=== PATIENT | male | born 1935 | race Caucasian/White ===

== ENCOUNTER → 2018-01-29 09:12 | Outpatient (CLI) | payer MEDICARE, SELFPAY ==
[2018-01-29 12:06] LABS: Adenovirus F 40/41 Not Detected (Not Detect); Astrovirus Not Detected (Not Detect); Campylobacter Not Detected (Not Detect); Clostridium difficile toxin AB Not Detected (Not Detect); Cryptosporidium Not Detected (Not Detect); Cyclospora cayetanensis Not Detected (Not Detect); Entamoeba histolytica Not Detected (Not Detect); Enteroaggregative E.coli Not Detected (Not Detect); Enteropathogenic E.coli Not Detected (Not Detect); Enterotoxigenic E.coli It/st Not Detected (Not Detect); Giardia lamblia Not Detected (Not Detect); Norovirus GI/GII Not Detected (Not Detect); Plesiomonsa shigelloides Not Detected (Not Detect); Rotavirus A Not Detected (Not Detect); Salmonella Not Detected (Not Detect); Shiga-like toxin-prod E.coli Not Detected (Not Detect); Shigella/Enteroinvasive E.coli Not Detected (Not Detect); Vibrio Not Detected (Not Detect); Vibrio cholerae Not Detected (Not Detect); Yersinia enterocolitica Not Detected (Not Detect)
== END ==
PROVIDERS: PCP Internal Medicine; Visit Provider Internal Medicine
DX: R19.7 Diarrhea, unspecified (principal)
CPT/HCPCS: 87507

== ENCOUNTER → 2019-11-27 18:59 | Outpatient (ROUT) | payer MEDICARE, SELFPAY ==
[2019-11-27 19:16] LABS: Alanine Aminotransferase 13 IU/L (<50); Albumin 4.4 g/dL (3.5-5.0); Albumin Globulin Ratio 1.5 (1.0-2.8); Alkaline Phosphatase 92 U/L (38-126); Aspartate Aminotransferase 35 IU/L (17-59); Bilirubin Total 0.6 mg/dL (0.2-1.3); Blood Urea Nitrogen 15 mg/dL (9-20); Calcium 10.4 mg/dL (8.4-10.2); Carbon Dioxide 29 mmol/L (22-32); Chloride 105 mmol/L (98-107); Cholesterol 120 mg/dL (140-199); Estimated Glomerular Filt Rate > 60.0 mL/min (>60); Globulin 2.9 g/dL (1.7-4.1); Glucose 86 mg/dL (80-110); HDL Cholesterol 47 mg/dL (40-60); HEMOLYSIS < 15 (0-50); LDL Cholesterol Calculated 44 mg/dL (<100); Sodium 140 mmol/L (137-145); Total Protein 7.3 g/dL (6.3-8.2); Triglycerides 144 mg/dL (35-150)
[2019-11-27 19:25] LABS: Hematocrit 36.6 % (41-53); Hemoglobin 12.9 g/dL (13.5-17.5); Mean Corpuscular HGB Conc 35.3 % (30-36); Mean Corpuscular Volume 116.2 fL (80-100); Platelet Count 155 X10^3/uL (150-400); Red Blood Cell Count 3.15 X10^6/uL (4.5-5.9); Red Cell Distribution Width 14.7 % (11.6-14.8); White Blood Cell Count 8.4 X10^3/uL (4.5-11.0)
[2019-11-27 19:45] LABS: TSH w/ Reflex to FT4 2.89 uIU/mL (0.47-4.68)
[2019-11-27 19:46] LABS: Prostate Specific Antigen 0.893 ng/mL (0.10-4.00)
[2019-11-27 20:04] LABS: Vitamin B12 394 pg/mL (239-931)
== END ==
PROVIDERS: Family Provider Internal Medicine; PCP Internal Medicine; Visit Provider Internal Medicine
DX: E53.8 Deficiency of other specified B group vitamins (principal); E78.2 Mixed hyperlipidemia; D37.8 Neoplasm of uncertain behavior of other specified digestive organs; N40.1 Benign prostatic hyperplasia with lower urinary tract symptoms
CPT/HCPCS: 80053; 80061; 82607; 84153; 84443; 85027

== ENCOUNTER → 2020-01-01 11:59 | Outpatient (CLI) | payer MEDICARE, SELFPAY ==
--- NOTE | 2020-01-01 | DI.CT.S_ITS ---
PROCEDURE: CT ABDOMEN PELVIS W CON INDICATIONS: Cyst of pancreas TECHNIQUE: After the administration of oral and intravenous contrast, 5 mm thick sections acquired from the diaphragms to the symphysis. 5 mm thick coronal and sagittal reformats were performed. For radiation dose reduction, the following was used: automated exposure control, adjustment of mA and/or kV according to patient size. COMPARISON: [facility], CT, IVP (ABD & PEL WWO CONTRAST), 07/11/2017, 11:15. FINDINGS: Image quality: Excellent. ABDOMEN: Lung bases: Lung bases are clear. Heart size is normal. Solid organs: Liver is normal in size and enhancement. Gallbladder has been previously resected. . Biliary system is non-dilated. Pancreas enhances normally, but again is seen to demonstrate a pancreatic head cystic structure and also dilatation of the proximal pancreatic duct with prominence of pancreatic side duct structures at the pancreatic tail. The cystic structure of the pancreatic head measures up to 1.7 cm, 1.6 cm in July of 2017. No significant change. The morphology in degree of pancreatic ductal dilatation both at the main duct and the side branches at the pancreatic tail also is stable over time with maximal transverse dimension at the main duct of 11 mm. Spleen is normal in size and enhancement. No adrenal nodules. Kidneys are normal in size and enhancement, without hydronephrosis. Peritoneum and bowel: Stomach, small bowel, and colon loops are normal in caliber and wall thickness. No free fluid or air. Nodes and vessels: No retroperitoneal or mesenteric adenopathy. Aorta and inferior vena cava are normal in caliber. Miscellaneous: No ventral hernias. PELVIS: Genitourinary: Bladder wall thickness is normal and again noted is a right posterolateral bladder diverticulum containing internal calculi, the largest of which measures up to 2 cm. Prostate enlargement again noted, stable, stippled calcification are present at the median lobe of the prostate as was previously the case Miscellaneous: No inguinal hernias or adenopathy. Bones: No suspicious bony lesions. No vertebral body compression fractures. IMPRESSION: The patient has a history of previous identification of several pancreatic cysts and asymmetric enlargement of the proximal pancreatic duct at the pancreatic tail measuring up to 10 mm. The current ductal caliber is 11 mm, no significant change. The pancreatic head cyst appears simple and without significant enlargement over time. No adenopathy has developed. If clinically warranted follow-up similar CT in 2 years could be obtained. 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 Prior cholecystectomy. Mild interval enlargement of calculi within a bladder diverticulum at the right posterolateral bladder margin. Prosthetic enlargement, stippled prosthetic calcifications at the upper midline of the enlarged median lobe. Dictated by: Jr Scott M.D. on 01/01/2020 at 14:08 Approved by: Jr Scott M.D. on 01/01/2020 at 14:16
[2020-01-01 12:38] LABS: BUN Creatinine Ratio 17.3 (6-22); Blood Urea Nitrogen 13 mg/dL (9-20); Calcium 10.5 mg/dL (8.4-10.2); Carbon Dioxide 28 mmol/L (22-32); Chloride 105 mmol/L (98-107); Estimated Glomerular Filt Rate > 60.0 mL/min (>60); Glucose 95 mg/dL (80-110); HEMOLYSIS < 15 (0-50); Potassium 4.1 mmol/L (3.4-5.1); Sodium 138 mmol/L (137-145)
== END ==
PROVIDERS: Family Provider Internal Medicine; PCP Internal Medicine; Referring Provider Surgery Surgical Oncology; Visit Provider Surgery Surgical Oncology
DX: K86.2 Cyst of pancreas (principal); K86.89 Other specified diseases of pancreas; N40.0 Benign prostatic hyperplasia without lower urinary tract symptoms; N32.3 Diverticulum of bladder; Z90.49 Acquired absence of other specified parts of digestive tract
CPT/HCPCS: 36415; 74177; 80048; Q9967

== ENCOUNTER → 2020-07-03 18:30 | Outpatient (ROUT) | payer MEDICARE, SELFPAY ==
[2020-07-03 19:10] LABS: Add Manual Diff / Slide Review NO; Basophils Absolute Auto 100 /uL (0-100); Basophils Percent Auto 0.9 % (0-2); Eosinophils Absolute Auto 100 /uL (0-450); Eosinophils Percent Auto 0.6 % (2-4); Hematocrit 40.3 % (41-53); Hemoglobin 13.6 g/dL (13.5-17.5); Lymphocytes Absolute Auto 1400 /uL (1100-4500); Mean Corpuscular HGB Conc 33.7 % (30-36); Mean Corpuscular Hemoglobin 38.7 PG (26-34); Mean Corpuscular Volume 114.9 fL (80-100); Monocytes Absolute Auto 1200 /uL (0-900); Monocytes Percent Auto 12.3 % (3-14); Neutrophils Absolute Auto 7000 /uL (1500-7000); Neutrophils Percent Auto 72.2 % (50-75); Platelet Count 166 X10^3/uL (150-400); Red Cell Distribution Width 14.6 % (11.6-14.8); White Blood Cell Count 9.7 X10^3/uL (4.5-11.0)
[2020-07-03 19:13] LABS: Alanine Aminotransferase 16 IU/L (<50); Albumin 4.4 g/dL (3.5-5.0); Albumin Globulin Ratio 1.4 (1.0-2.8); Alkaline Phosphatase 94 U/L (38-126); Aspartate Aminotransferase 33 IU/L (17-59); BUN Creatinine Ratio 22.9 (6-22); Bilirubin Total 0.6 mg/dL (0.2-1.3); Bilirubin Unconjugated 0.5 mg/dL (0.0-1.1); Blood Urea Nitrogen 19 mg/dL (9-20); Calcium 10.8 mg/dL (8.4-10.2); Carbon Dioxide 28 mmol/L (22-32); Chloride 102 mmol/L (98-107); Estimated Glomerular Filt Rate > 60.0 mL/min (>60); Globulin 3.1 g/dL (1.7-4.1); Glucose 126 mg/dL (80-110); HEMOLYSIS < 15 (0-50); Sodium 138 mmol/L (137-145); Total Protein 7.5 g/dL (6.3-8.2)
[2020-07-03 19:47] LABS: Anisocytosis 1+; Macrocytosis 2+
[2020-07-03 20:02] LABS: Vitamin B12 926 pg/mL (239-931)
== END ==
PROVIDERS: Family Provider Internal Medicine; PCP Internal Medicine; Visit Provider Internal Medicine
DX: I47.1 Supraventricular tachycardia (principal); D51.9 Vitamin B12 deficiency anemia, unspecified; D37.8 Neoplasm of uncertain behavior of other specified digestive organs
CPT/HCPCS: 80048; 80076; 82607; 85025

== ENCOUNTER → 2020-07-13 13:22 | Outpatient (CLI) | payer OTHER, SELFPAY ==
[2020-07-13 15:46] LABS: Calcium 10.7 mg/dL (8.4-10.2)
[2020-07-14 09:06] LABS: Parathyroid Hormone Int 73 pg/mL (15-65)
[2020-07-14 09:09] LABS: Ionized Calcium 5.7 mg/dL (4.5-5.6)
== END ==
PROVIDERS: Family Provider Internal Medicine; PCP Internal Medicine; Referring Provider Internal Medicine; Visit Provider Internal Medicine
DX: Z13.9 Encounter for screening, unspecified (principal)
CPT/HCPCS: 82310; 82330; 83970

== ENCOUNTER → 2020-12-02 12:34 | Outpatient (CLI) | payer OTHER, SELFPAY ==
--- NOTE | 2020-12-02 | DI.RAD.S_ITS ---
PROCEDURE: XR LUMBAR SPINE 2-3V INDICATIONS: Other intervertebral disc degeneration, lumbar region TECHNIQUE: 3 views of the lumbar spine were acquired. COMPARISON: [facility], CT, CT ABDOMEN PELVIS W CON, 01/01/2020, 13:05. [facility], CR, L-SPINE 2-3 VIEWS, 06/16/2015, 12:13. FINDINGS: Bones: 5 [id number] vertebrae are present. There is normal bony alignment. No vertebral body compression fractures. No suspicious bony lesions. Soft tissues: Overlying bowel gas pattern is normal. No suspicious soft tissue calcifications. IMPRESSION: The degenerative changes along the lumbosacral spine are mild in severity overall and most prominent at L4-5 and L5-S1 where mild to moderate degeneration can be seen at the disc spaces. 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 No subluxation is associated. Bladder calculi are present within the bladder better seen by CT scanning 01/01/20. These remain present and appeared of slightly enlarged. Urology consultation presumably has been obtained. Dictated by: Jr Scott M.D. on 12/02/2020 at 14:09 Approved by: Jr Scott M.D. on 12/02/2020 at 14:12
== END ==
PROVIDERS: Family Provider Internal Medicine; PCP Internal Medicine; Referring Provider Internal Medicine; Visit Provider Internal Medicine
DX: M51.36 Other intervertebral disc degeneration, lumbar region (principal); M47.816 Spondylosis without myelopathy or radiculopathy, lumbar region; M47.817 Spondylosis without myelopathy or radiculopathy, lumbosacral region; N21.0 Calculus in bladder
CPT/HCPCS: 72100

== ENCOUNTER → 2021-11-17 09:31 | Outpatient (CLI) | payer OTHER, SELFPAY ==
--- NOTE | 2021-11-17 | DI.ECHO.S_ITS ---
[facility] +---------+ : : [address] : : : : [id number] : : : : Phone: [phone]+ Echocardiogram Report + + :Name: CLIFF BAER Study Date: 11/17/2021 Height: 78 in : :[facility] ReadingLocation: Weight: 210 lb : : Gender: Male BSA: 2.3 m2 : :: 1935 Age: 86 yrs BP: 125/90 mmHg: :Reason For Study: DYSPNEA : :Ordering Physician: PARISH, : :CASS Johnson Performed By: Shannon Herrera : :Referring: CASS GREENE : + + Interpretation Summary The ejection fraction is estimated to be 55-60%. Diastolic parameters suggest probable normal left ventricular diastolic function and normal filling pressures. The right ventricle is normal in size and function. Aortic valve sclerosis. Unable to estimate PASP. Compared to the prior study dated 07/31/2013, no significant change. Procedure: A two-dimensional transthoracic echocardiogram with color flow and Doppler was performed. The study quality was technically adequate. Comparison is made with the echocardiogram of 07/31/2013. The patient was in sinus rhythm with heart rates between 69-75 bpm during the exam. Left Ventricle: The left ventricle is normal in size and wall thickness. The ejection fraction is estimated to be 55-60%. Diastolic parameters suggest probable normal left ventricular diastolic function and normal filling pressures. Right Ventricle: There is a pacemaker lead in the right ventricle. The right ventricle is normal in size and function. Atria: The left atrial size is normal. Right atrial size is normal. There is a catheter/pacemaker lead seen in the right atrium. There is no Doppler evidence for an interatrial shunt. Mitral Valve: The mitral valve is normal in structure and function. There is no mitral regurgitation noted. Aortic Valve: The aortic valve is mildly calcified. There is mildly reduced leaflet mobility. The peak aortic velocity is 2.3 m/sec. The aortic valve mean gradient is 8 mmHg. There is trace aortic regurgitation. Tricuspid Valve: The tricuspid valve is normal in structure and function. There is trace tricuspid regurgitation. Pulmonary artery pressures cannot be estimated because of the lack of a measurable TR jet velocity. Pulmonic Valve: The pulmonic valve leaflets are thin and pliable; valve motion is normal. There is mild pulmonic regurgitation. Great Vessels: The aortic root is normal size. The dimensions of the ascending aorta are normal. The IVC is of normal diameter and collapses greater than 50% with a sniff. This suggests a low right atrial pressure of 3 mm Hg. Pericardium/ Pleura There is no pericardial effusion. There is no pleural effusion. MMode/2D Measurements & Calculations LVIDd: 4.0 cm LVOT diam: 2.4 cm LVIDs: 2.7 cm Ao root diam: 4.1 cm FS: 31.0 % asc Aorta Diam: 3.6 cm IVSd: 1.1 cm Ao Arch Diam (Prox Trans): 2.9 cm LVPWd: 1.0 cm LV varghese. diameter/BSA (cm/m^2): 1.7 LV sys. diameter/BSA (cm/m^2): 1.2 LA A2 area: 23.4 cm2 RA long axis: 5.6 cm LA A4 area: 19.6 cm2 RA area: 16.7 cm2 LA length (vol): 5.8 cm RA vol: 42.2 ml LA vol: 67.2 ml RA : 18.3 ml/m2 LA vol index: 29.2 ml/m2 IVC diam: 1.6 cm RVD1 (basal): 4.1 cm RVD2 (mid): 3.6 cm TAPSE: 1.7 cm Doppler Measurements & Calculations Ao V2 max: 230.2 cm/sec LVOT Max Abelino: 118.1 cm/sec Ao V2 mean: 142.9 cm/sec LV V1 max P.6 mmHg Ao max P.6 mmHg LV V1 VTI: 24.9 cm Ao mean P.2 mmHg ELIUD(I,D): 2.6 cm2 Ao V2 VTI: 41.9 cm ELIUD(V,D): 2.2 cm2 sev ratio: 0.59 ELIUD indexed to BSA (cm^2/m^2): 1.1 MV E max abelino: 40.7 cm/sec TR max abelino: 221.1 cm/sec MV A max abelino: 76.5 cm/sec TR max P.6 mmHg MV E/A: 0.53 PA V2 max: 104.6 cm/sec Med Peak E' Abelino: 4.2 cm/sec PA V2 mean: 69.6 cm/sec E/E' med: 9.6 PA mean P.2 mmHg Lat Peak E' Abelino: 6.2 cm/sec PA pr(Accel): 24.2 mmHg E/E' lat: 6.6 E/e' average: 8.1 MV dec time: 0.29 sec SVLVOT): 108.3 ml Reading Physician:04:43 PM
--- NOTE | 2021-11-17 15:24 | PM.TREADMILL ---
Cardiac Stress Test Report Referral & Results Date Patient Seen: 11/17/21 Time Patient Seen: 15:24 Requesting provider: Cass Greene Indication: Dyspnea Rest ECG: Sinus rhythm with rbbb Procedure Note: After Lexiscan injection had minimal dyspnea and no chest pain. Patient developed lightheadedness with hypotension 80/50. Normal saline 60 ml IV bolus given with blood pressure improving to 118/60 and lightheadedness resolving No significant ST changes after Lexiscan injection Impression: Normal lexiscan injection Nuclear images pending Please note: Actual ECG tracings can be found in the PACS system.
--- NOTE | 2021-11-17 21:12 | DI.NM.S_ITS ---
DATE OF SERVICE: 11/17/2021 PROCEDURE PERFORMED: Pharmacologic vasodilator stress and rest myocardial perfusion imaging with gating to assess ejection fraction and regional wall motion. ORDERING PROVIDER: Dr. Cass Greene INDICATIONS: The patient is an 86-year-old male with exertional dyspnea and history of atrial arrhythmias. CARDIAC STRESS: Per protocol, 0.4 mg of regadenoson was infused with a normal hemodynamic response although his blood pressure dropped to 80/50 with lightheadedness that promptly responded to a saline bolus with resolution of his symptoms. He developed minimal dyspnea but no chest discomfort. Hisis resting ECG showed sinus rhythm with a RBBB and left posterior fascicular block and a first-degree AV block but no significant ST-segment abnormalities. With stress, there were no significant ST-segment shifts. He had occasional isolated PVCs but no other arrhythmias. Per protocol, 24.6 millicuries of technetium-99m Myoview was injected and he was imaged 10 minutes later using a gated SPECT acquisition protocol. Earlier in the day while at rest, he had been injected with 8.1 millicuries of technetium- 99m Myoview while at rest and was imaged 20 minutes later, although gating was unable to be successfully performed. FINDINGS: 1. Raw data: There is fairly good myocardial tracer uptake. The lung/heart ratio is normal at 0.38. The resting images could not be gated and therefore, no end-diastolic volume could not be obtained and the TID ratio could not be assesed.. 2. Quantitated gated SPECT: The post-stress ejection fraction is estimated at 80% without any focal wall motion abnormality and specifically the inferior wall appears to have normal contractility. The post-stress end-diastolic volume is normal at 83 mL The resting images were unable to be gated and therefore there is no functional data. . 3. Myocardial perfusion imaging: Post-stress supine images shows a fairly normal myocardial perfusion pattern with a very subtle defect at the base of the inferior wall in a pattern consistent with diaphragmatic attenuation, supported by its complete resolution on the prone images, revealing an normal, homogeneous perfusion pattern. The resting images show an identical perfusion pattern to that of the post-stress supine images with no significant improvement in the proximal to mid inferior defect. IMPRESSION: 1. Normal myocardial perfusion study. 2. Subtle, fixed proximal inferior perfusion defect that resolves on prone imaging, most consistent with diaphragmatic attenuation artifact. There is no compelling evidence for myocardial ischemia or previous myocardial infarction. 3. Normal left ventricular systolic function without any focal wall motion abnormality. 4. No angina or ECG evidence of ischemia with pharmacologic vasodilator stress. He had a mild hypotensive blood pressure response to regadenoson that was easily treated with a saline bolus. He had rare isolated PVCs but no concerning arrhythmias. Juanito Hernandez - [place]/sudha doc#: [id number]/job#: [id number] dd: 11/17/2021 16:42:00 dt: 11/17/2021 20:56:00 DICTATING MD/COPIES TO: Jesus Gonzalez MD; Cass Greene M.D. COPIES MNE: GRETA;
== END ==
PROVIDERS: Family Provider Internal Medicine; PCP Internal Medicine; Referring Provider Internal Medicine Cardiovascular Disease; Visit Provider Internal Medicine Cardiovascular Disease
DX: I37.1 Nonrheumatic pulmonary valve insufficiency (principal); R06.00 Dyspnea, unspecified; I49.9 Cardiac arrhythmia, unspecified
CPT/HCPCS: 78452; 93017; 93306; A9502; J2785

== ENCOUNTER → 2021-12-10 11:06 | Outpatient (CLI) | payer OTHER, SELFPAY ==
[2021-12-10 11:37] LABS: Hematocrit 40.2 % (41-53); Hemoglobin 13.9 g/dL (13.5-17.5); Mean Corpuscular HGB Conc 34.5 % (30-36); Mean Corpuscular Hemoglobin 38.5 PG (26-34); Mean Corpuscular Volume 111.6 fL (80-100); Platelet Count 158 X10^3/uL (150-400); Red Cell Distribution Width 14.2 % (11.6-14.8); White Blood Cell Count 9.3 X10^3/uL (4.5-11.0)
[2021-12-10 12:00] LABS: Alanine Aminotransferase 12 IU/L (<50); Albumin 4.4 g/dL (3.5-5.0); Albumin Globulin Ratio 1.4 (1.0-2.8); Alkaline Phosphatase 78 U/L (38-126); Aspartate Aminotransferase 29 IU/L (17-59); BUN Creatinine Ratio 18.2 (6-22); Bilirubin Total 1.2 mg/dL (0.2-1.3); Blood Urea Nitrogen 16 mg/dL (9-20); Calcium 10.7 mg/dL (8.4-10.2); Carbon Dioxide 30 mmol/L (22-32); Chloride 104 mmol/L (98-107); Cholesterol 149 mg/dL (140-199); Estimated Glomerular Filt Rate > 60 mL/min (>60); Globulin 3.2 g/dL (1.7-4.1); Glucose 113 mg/dL (80-110); HDL Cholesterol 45 mg/dL (40-60); HEMOLYSIS < 15 (0-50); LDL Cholesterol Calculated 72 mg/dL (<100); Potassium 4.3 mmol/L (3.4-5.1); Sodium 138 mmol/L (137-145); Total Protein 7.6 g/dL (6.3-8.2); Triglycerides 160 mg/dL (35-150)
[2021-12-10 12:31] LABS: TSH w/ Reflex to FT4 2.19 uIU/mL (0.47-4.68)
== END ==
PROVIDERS: Family Provider Internal Medicine; PCP Internal Medicine; Referring Provider Internal Medicine; Visit Provider Internal Medicine
DX: D49.0 Neoplasm of unspecified behavior of digestive system (principal); E78.2 Mixed hyperlipidemia; N40.1 Benign prostatic hyperplasia with lower urinary tract symptoms; I10 Essential (primary) hypertension; D86.85 Sarcoid myocarditis; N13.8 Other obstructive and reflux uropathy
CPT/HCPCS: 36415; 80053; 80061; 84153; 84443; 85027

== ENCOUNTER → 2022-01-06 12:41 | Outpatient (CLI) | payer OTHER, SELFPAY ==
--- NOTE | 2022-01-06 12:43 | DI.RAD.S_ITS ---
PROCEDURE: XR KUB INDICATIONS: Urinary calculi TECHNIQUE: One view of the abdomen acquired. COMPARISON: None. FINDINGS: Surgical changes and devices: None. Bowel: Bowel gas pattern is normal. Soft tissues: Approximately 11 calcific densities project over the lower right hemipelvis concerning for urinary calculi possibly within bladder diverticulum. Largest lower right hemipelvis stone measures 2.7 centimeters in greatest diameter. There is a 2.1 centimeter calcification projecting over the midline lower pelvis concerning for urinary bladder stone.. Visualized solid organ contours appear normal in size. Bones: No suspicious bony lesions. IMPRESSION: Probable multiple urinary bladder stones. Dictated by: Sabina Ndiaye MD, PhD on 01/06/2022 at 16:50 Approved by: Sabina Ndiaye MD, PhD on 01/06/2022 at 16:52
== END ==
PROVIDERS: Family Provider Internal Medicine; PCP Internal Medicine; Referring Provider Urology; Visit Provider Urology
DX: N21.0 Calculus in bladder (principal); N40.1 Benign prostatic hyperplasia with lower urinary tract symptoms; N13.8 Other obstructive and reflux uropathy; N39.43 Post-void dribbling; R82.81 Pyuria; R30.0 Dysuria; R35.1 Nocturia; R31.29 Other microscopic hematuria; R39.13 Splitting of urinary stream; Z98.890 Other specified postprocedural states; Z90.79 Acquired absence of other genital organ(s)
CPT/HCPCS: 51798; 74018; 81002; 99214

== ENCOUNTER → 2022-01-07 11:13 | Outpatient (CLI) | payer OTHER, SELFPAY ==
--- NOTE | 2022-01-07 11:15 | DI.CT.S_ITS ---
PROCEDURE: CT ABDOMEN PANCREATIC PROTOCOL INDICATIONS: followup pancreatic IPMN TECHNIQUE: After the administration of intravenous contrast, 3 mm thick pancreatic-phase images acquired from the diaphragm to the iliac crests. 3 mm thick coronal and sagittal reformats were performed. For radiation dose reduction, the following was used: automated exposure control, adjustment of mA and/or kV according to patient size. COMPARISON: [facility], CT, CT ABDOMEN PELVIS W CON, 01/01/2020, 13:05. FINDINGS: Image quality: Excellent. Lung bases: Scattered scarring and atelectasis. Partially visualized electrode leads. Aortic valvular calcifications. Pancreas: Multiple pancreatic cystic lesions, with mild ductal dilation. Pancreatic tail elongated lesion measures 3.4 x 1.2 cm (2/48), previously 3.4 x 1.1 cm. Pancreatic neck lesion (2/42) measuring 19 mm, previously 18 mm. Pancreatic uncinate process lesion measuring 16 x 13 mm, previously 11 x 8 mm (2/56) Pancreatic parenchyma otherwise appears normal. Other smaller subcentimeter cystic lesions are also present. Other solid organs: Liver is normal in size and enhancement. Cholecystectomy. Biliary system is non dilated. Spleen is normal in size and enhancement. No adrenal nodules. Subcentimeter renal lesions are too small to characterize. Left parapelvic cysts. Peritoneum and bowel: Unenhanced bowel loops demonstrate normal wall thickness and caliber. No free fluid or air. Duodenal diverticulum. Nodes and vessels: Stable enlarged lymph node at the gastrohepatic station (2/33) measuring 15 mm. This was seen previously. Bones: Spondylosis. No suspicious or acute osseous finding. Miscellaneous: No ventral hernias. IMPRESSION: Multiple pancreatic cystic lesions as described above, the uncinate process lesion is increased , now measuring 16 x 13 mm, compared to December of 2019. Other lesions at the neck and tail, as well as subcentimeter lesions are stable. Persistent mild pancreatic ductal dilation. Given patient's age, follow-up imaging, no further evaluation, or EUS/FNA in consultation with gastroenterology are all reasonable options per current guidelines. Other incidental findings above. Dictated by: Jose Ramon Webb M.D. on 01/07/2022 at 13:18 Approved by: Jose Ramon Webb M.D. on 01/07/2022 at 13:30
== END ==
PROVIDERS: Family Provider Internal Medicine; PCP Internal Medicine; Referring Provider Internal Medicine; Visit Provider Internal Medicine
DX: K86.2 Cyst of pancreas (principal); K57.10 Diverticulosis of small intestine without perforation or abscess without bleeding; R59.0 Localized enlarged lymph nodes; K86.89 Other specified diseases of pancreas
CPT/HCPCS: 74160; Q9967

== ENCOUNTER → 2022-01-19 08:24 | Outpatient (CLI) | payer OTHER, SELFPAY | PROVIDERS: Family Provider Internal Medicine; PCP Internal Medicine; Visit Provider Urology | DX: N40.1 Benign prostatic hyperplasia with lower urinary tract symptoms (principal); N13.8 Other obstructive and reflux uropathy; R30.0 Dysuria | CPT/HCPCS: 81002; 87086 ==

== ENCOUNTER → 2022-02-11 11:27 | Outpatient (CLI) | payer OTHER, SELFPAY ==
[2022-02-11 12:09] LABS: COVID19 -Nasal RAPID Negative (Negative)
== END ==
PROVIDERS: Family Provider Internal Medicine; PCP Internal Medicine; Visit Provider Urology
DX: Z20.822 Contact with and (suspected) exposure to COVID-19 (principal); Z01.818 Encounter for other preprocedural examination; N40.1 Benign prostatic hyperplasia with lower urinary tract symptoms; N13.8 Other obstructive and reflux uropathy; N21.0 Calculus in bladder; Z90.79 Acquired absence of other genital organ(s); Z95.0 Presence of cardiac pacemaker; N32.3 Diverticulum of bladder
CPT/HCPCS: 81002; 87635; 99214

== ENCOUNTER 2022-02-14 09:02 | Day surgery (SDC) | payer OTHER, SELFPAY ==
[2022-02-14] VITALS (9 sets, daily range): BP systolic 105–130; BP diastolic 57–78; PULSE 75–95; RESP 14–16; TEMP 36.1–36.6; O2SAT 92–98; BMI 23.1
[2022-02-14] MEDS: LACTATED RINGERS 1,000 ML 42 ML IV (10:06)
--- NOTE | 2022-02-14 11:35 | PM.PREOP ---
Pre-operative Note COVID-19 COVID-19 status: Negative Result date/Date tested (Pos, Neg/Pending): 02/11/22 Criteria for continued procedure: Delay expected to result in less-positive ultimate med/surg outcome and Non-surgical alternatives not available or appropriate per current SOC Interval Note History & Physical reviewed/Exam performed by Physician: Yes Changes to H&P: No
[2022-02-14] MEDS: CIPROFLOXACIN 400 MG/200 ML PIGGYBACK 200 MG IV (12:11)
--- NOTE | 2022-02-14 12:39 | SUR.OPER ---
Lithotomy on padded OR bed, head on pillow, arms secured on padded arm boards at <90 degrees abduction. Legs secured in padded yellow fins stirrups.
--- NOTE | 2022-02-14 12:40 | SUR.OPER ---
SEE LASER REP SHEET
--- NOTE | 2022-02-14 13:32 | P.OP_ITS ---
Procedure & Clinicians Procedure: Photo vaporization of prostate Same procedure as scheduled: Yes Indications: This is a very pleasant 86-year-old gentleman who presented with complaint of bladder prostate and diverticular calculi and was found to have regrowth of his prostate causing bladder outlet obstruction which also fit with his complaints of lower urinary tract symptoms recurrent. He presents at this time to have the prostatic calcifications removed and 4 photo vaporization possible laser enucleation of prostate. Surgeon: Mundo Lemon Click Yes if Unassisted: Yes Anesthesia Type: General Operative Notes Findings: Urethral meatus is normal urethra is normal along its length sphincter as well coapted. Within the prostate there are several nodular regrowth causing obstruction. On the surface of these there are some adherent calcifications. These are easily knocked off in war stent washed into the bladder. Within the bladder there is a calculus. There was a diverticula with calcifications present ureteral orifices in approximately normal position with clear efflux. No tumors growths or other abnormalities noted within the bladder. At the end of the procedure all nodular regrowth had been removed the prostate was wide open. The patient had a vigorous stream with a full bladder in gentle pressure on the abdomen. Total laser energy was 133,171 joules total laser time 20 minutes 43 seconds. A 22 Georgian 5 cc Morrissey catheter was left in the bladder with 15 cc in the balloon. Closure Type: not applicable Specimen(s): none sent Applied: catheter (Twenty-two Georgian 5 cc Morrissey catheter 15 cc in balloon) Estimated Blood Loss (mL): 5 Blood products transfused: none Procedure in detail: Procedure in detail: After informed consent was obtained, the patient was identified and brought to the operating room where he was placed in a supine position on the table. Patient then had anesthesia induced and maintained. Ensuring an adequate level of anesthesia the patient was then transitioned to the lithotomy position where he was prepped, draped and prepared for transurethral procedure. After time-out prepping, draping and ensuring an adequate level of anesthesia laser resectoscope was passed through the urethra prostate and the bladder under direct vision. The laser resectoscope was then used to dislodge the adherent prostatic calcifications. These were washed into the bladder cystoscopy was then performed and findings noted. The laser fiber was then inserted the level of the verumontanum was marked on the nodular regrowth of lateral lobes. Anteriorly the nodules formed a shelf this was also marked with the laser from the bladder neck to the verumontanum. This was both right and left the nodules were then sequentially resected with the laser down to the previous line of resection and surgical capsule. With the total amount of laser energy mentioned above delivered the prostatic fossa was wide open. And the bladder was filled and the scope removed vigorous stream was noted. The 22 Georgian catheter was then easily passed into the bladder the balloon filled with 10 cc followed by 5 cc of sterile water for total 15 cc. Catheter was placed to gravity drainage the patient was awakened having tolerated the procedure well and transferred to the postanesthesia care unit for recovery. There were no complications Complications: none Post-operative Condition: stable Disposition: PACU Plan for aftercare: Patient to be discharged home to follow up my office in the morning for catheter removal and voiding trial.
--- NOTE | 2022-02-14 13:49 | SUR.PHASEI ---
Oral airway removed and pt's respirations even and unlabored.
[2022-02-14] MEDS: PHENAZOPYRIDINE 100 MG TABLET 200 MG PO (14:06)
--- NOTE | 2022-02-14 15:25 | SUR.PHASEII ---
02/14/22-1500-- home care instructions and catheter care gone over with daughter,Elizabeth and patient,with return demonstration on leg bag and large 3l bag. Daughter doesnt know who Anjana could be in home instructions -thinks could be missprint of name of other sister. vss. urine came into phase 2 by catheter clear light pink now on discharging a clear orange tinted yellow. vss. met criteria for discharge home. iv out. 1524-assisted with clothing. discharged home with all belongings and information/supplies.
== END 2022-02-14 15:23 | disposition home or self-care (01) ==
PROVIDERS: Family Provider Internal Medicine; PCP Internal Medicine; Referring Provider Urology; Visit Provider Urology
PROC: (CPT 52648; principal; 2022-02-14 10:45)
DX: N40.1 Benign prostatic hyperplasia with lower urinary tract symptoms (principal); N32.0 Bladder-neck obstruction; N13.9 Obstructive and reflux uropathy, unspecified; N42.0 Calculus of prostate
CPT/HCPCS: 52648; J0744; J1100; J2405; J2704; J3010

== ENCOUNTER → 2022-02-24 13:36 | Outpatient (CLI) | payer OTHER, SELFPAY ==
--- NOTE | 2022-02-24 14:14 | DI.RAD.S_ITS ---
PROCEDURE: XR KUB INDICATIONS: Bladder calculi TECHNIQUE: One view of the abdomen acquired. COMPARISON: [facility], CT, CT ABDOMEN PELVIS W CON, 01/01/2020, 13:05. [facility], CT, CT ABDOMEN PANCREATIC PROTOCOL, 01/07/2022, 12:23. [facility], CR, XR KUB, 01/06/2022, 12:46. FINDINGS: Surgical changes and devices: None. Bowel: Bowel gas pattern is normal. Soft tissues: Multiple calcifications projected over the inferior pelvis in this patient with history of bladder calculi, largest measuring roughly 2.2 cm. . Visualized solid organ contours appear normal in size. Bones: No suspicious bony lesions. IMPRESSION: Multiple urinary bladder calculi redemonstrated, largest measuring 2.2 cm. Dictated by: Dillon Cárdneas [facility] Interpreted: Leigh Perera MD on 02/24/2022 at 16:35 Approved by: Leigh Perera M.D. on 02/24/2022 at 17:32
== END ==
PROVIDERS: Family Provider Internal Medicine; PCP Internal Medicine; Referring Provider Urology; Visit Provider Urology
DX: N40.1 Benign prostatic hyperplasia with lower urinary tract symptoms (principal); N13.8 Other obstructive and reflux uropathy; R35.1 Nocturia; N21.0 Calculus in bladder; Z98.890 Other specified postprocedural states; Z90.79 Acquired absence of other genital organ(s)
CPT/HCPCS: 51798; 74018; 81002; 87086

== ENCOUNTER → 2022-03-08 09:34 | Outpatient (CLI) | payer OTHER, SELFPAY | PROVIDERS: Family Provider Internal Medicine; PCP Internal Medicine; Visit Provider Urology | DX: N13.8 Other obstructive and reflux uropathy (principal); N21.0 Calculus in bladder; N40.1 Benign prostatic hyperplasia with lower urinary tract symptoms | CPT/HCPCS: 87086 ==

== ENCOUNTER → 2022-03-17 11:41 | Outpatient (CLI) | payer OTHER, SELFPAY | PROVIDERS: Family Provider Internal Medicine; PCP Internal Medicine; Visit Provider Urology | DX: N13.8 Other obstructive and reflux uropathy (principal); N21.0 Calculus in bladder; N40.1 Benign prostatic hyperplasia with lower urinary tract symptoms; R35.1 Nocturia; N32.3 Diverticulum of bladder; Z98.890 Other specified postprocedural states; Z90.79 Acquired absence of other genital organ(s); Z87.898 Personal history of other specified conditions | CPT/HCPCS: 81002; 87086 ==

== ENCOUNTER → 2022-05-06 10:01 | Outpatient (CLI) | payer OTHER, SELFPAY ==
--- NOTE | 2022-05-06 10:02 | DI.RAD.S_ITS ---
PROCEDURE: XR KUB INDICATIONS: Bladder calculi TECHNIQUE: One view of the abdomen acquired. COMPARISON: [facility], CT, CT ABDOMEN PELVIS W CON, 01/01/2020, 13:05. [facility], CT, CT ABDOMEN PANCREATIC PROTOCOL, 01/07/2022, 12:23. [facility], CR, XR KUB, 02/24/2022, 14:41. [facility], CR, XR KUB, 01/06/2022, 12:46. FINDINGS: Surgical changes and devices: Cholecystectomy clips. Bowel: No dilated loops of bowel seen. Soft tissues: No kidney stones identified. Several bladder stones are again seen in the right pelvis. This was located within a bladder diverticulum on the prior CT. Largest stone measures 2.7 cm. No suspicious abdominal calcifications. Midline calcifications consistent with prostate calcifications as seen on prior CT. Visualized solid organ contours appear normal in size. Bones: No suspicious bony lesions. IMPRESSION: No interval change appreciated. Multiple stones in the right bladder. Dictated by: Filiberto Jewell M.D. on 05/06/2022 at 11:45 Approved by: Filiberto Jewell M.D. on 05/06/2022 at 11:50
== END ==
PROVIDERS: Family Provider Internal Medicine; PCP Internal Medicine; Referring Provider Urology; Visit Provider Urology
DX: N21.0 Calculus in bladder (principal); N32.3 Diverticulum of bladder
CPT/HCPCS: 74018

== ENCOUNTER → 2022-10-26 11:59 | Outpatient (CLI) | payer OTHER, SELFPAY | PROVIDERS: Family Provider Internal Medicine; PCP Internal Medicine; Visit Provider Urology | DX: N21.0 Calculus in bladder (principal); R35.1 Nocturia; Z87.898 Personal history of other specified conditions; N32.3 Diverticulum of bladder; Z90.79 Acquired absence of other genital organ(s); R82.81 Pyuria; R31.29 Other microscopic hematuria | CPT/HCPCS: 51798; 81002; 87086; 99214 ==

== ENCOUNTER → 2023-04-11 11:17 | Outpatient (CLI) | payer MEDICARE, SELFPAY ==
[2023-04-11 12:45] LABS: Add Manual Diff / Slide Review NO; Basophils Absolute Auto 100 /uL (0-100); Basophils Percent Auto 1.1 % (0-2); Eosinophils Absolute Auto 100 /uL (0-450); Hematocrit 41.4 % (41-53); Hemoglobin 14.5 g/dL (13.5-17.5); Lymphocytes Absolute Auto 1300 /uL (1100-4500); Lymphocytes Percent Auto 17.6 % (25-40); Mean Corpuscular Hemoglobin 38.2 PG (26-34); Monocytes Absolute Auto 800 /uL (0-900); Monocytes Percent Auto 10.6 % (3-14); Neutrophils Absolute Auto 5200 /uL (1500-7000); Neutrophils Percent Auto 69.7 % (50-75); Platelet Count 187 X10^3/uL (150-400); Red Cell Distribution Width 14.5 % (11.6-14.8); White Blood Cell Count 7.5 X10^3/uL (4.5-11.0)
[2023-04-11 12:59] LABS: INR 1.1 (0.9-1.3); Prothrombin Time 12.6 SECONDS (10.1-12.7)
[2023-04-11 13:02] LABS: PTT Partial Thromboplastin Tim 36 SECONDS (26-36)
[2023-04-11 13:22] LABS: Alanine Aminotransferase 19 IU/L (<50); Albumin 4.2 g/dL (3.5-5.0); Albumin Globulin Ratio 1.3 (1.0-2.8); Alkaline Phosphatase 69 U/L (38-126); Aspartate Aminotransferase 40 IU/L (17-59); BUN Creatinine Ratio 22.5 (6-22); Blood Urea Nitrogen 18 mg/dL (9-20); Calcium 10.3 mg/dL (8.4-10.2); Carbon Dioxide 25 mmol/L (22-32); Chloride 105 mmol/L (98-107); Estimated Glomerular Filt Rate > 60 mL/min (>60); Globulin 3.3 g/dL (1.7-4.1); Glucose 126 mg/dL (80-110); Sodium 139 mmol/L (137-145); Total Protein 7.5 g/dL (6.3-8.2)
[2023-04-11 13:28] LABS: HEMOLYSIS 59 (0-50); Potassium 4.2 mmol/L (3.4-5.1)
== END ==
PROVIDERS: Family Provider Internal Medicine; PCP Internal Medicine; Referring Provider Urology; Visit Provider Urology
DX: Z01.818 Encounter for other preprocedural examination (principal); N32.3 Diverticulum of bladder
CPT/HCPCS: 36415; 80053; 85025; 85610; 85730; 93005

== ENCOUNTER → 2023-04-24 12:28 | Outpatient (CLI) | payer OTHER, SELFPAY ==
[2023-04-24 13:11] LABS: Appearance Urine UA CLEAR; Bilirubin Urine UA NEGATIVE (NEGATIVE); Color Urine UA YELLOW; Glucose Urine UA NEGATIVE (Negative); Ketones Urine UA TRACE (NEGATIVE); Leukocyte Esterase Urine UA TRACE (NEGATIVE); Nitrite Urine UA NEGATIVE (Negative); Occult Blood Urine UA 1+ (Negative); Protein Urine UA 1+ (Negative); Urobilinogen Urine UA 0.2 E.U./dL (0.2); pH Urine UA 6.5 (4.5-8.0)
[2023-04-24 13:29] LABS: Bacteria Urine None Seen; Calcium Oxalate Crystals Urine Few; Culture Indicated Urine Specimen Cultured; RBC Urine 5-10/HPF (0-5/HPF); Squamous Epithelial Cell Urine 1-5 /HPF (0-5/HPF); Transitional Epi Cells Urine 0-1/HPF (0-5/HPF); WBC Urine 1-5/HPF (0-5/HPF)
== END ==
PROVIDERS: Family Provider Internal Medicine; PCP Internal Medicine; Referring Provider Urology; Visit Provider Urology
DX: N32.3 Diverticulum of bladder (principal)
CPT/HCPCS: 81001; 87086

== ENCOUNTER → 2023-04-25 09:04 | Outpatient (CLI) | payer OTHER, SELFPAY ==
--- NOTE | 2023-04-25 09:23 | DI.CT.S_ITS ---
PROCEDURE: CT ABDOMEN PELVIS WO CON INDICATIONS: Diverticulum of bladder TECHNIQUE: Axial sections were acquired from the lung bases to the pubic symphysis. Coronal and sagittal reformats were performed. For radiation dose reduction, the following was used: automated exposure control, adjustment of mA and/or kV according to patient size. COMPARISON: [facility], CT, CT ABDOMEN PELVIS W CON, 01/01/2020, 13:05. [facility], CT, CT ABDOMEN PANCREATIC PROTOCOL, 01/07/2022, 12:23. FINDINGS: Image quality: Excellent. Evaluation of the solid parenchymal organs is limited without IV contrast. Lung bases: No pleural effusion. Heart: Pacemaker leads. Clips near the distal esophagus. Bladder: Normal wall thickness. No stones. ABDOMEN: Liver: No contour-deforming solid mass. Gallbladder: Absent. Biliary ducts: Unremarkable. Pancreas: Grossly similar with cysts and pancreatic ductal dilatation. Not well evaluated on this noncontrast CT. Spleen: Size is within normal limits. Adrenal Glands: No adrenal nodules. Kidneys: No hydronephrosis. No kidney stones. Several small left benign peripelvic cysts are again seen. Stomach and Bowel: Stomach is not distended. No small bowel obstruction. Diverticulosis. The appendix is not dilated. Peritoneum: No abnormal intraperitoneal fluid. No free air. Ventral Wall: No hernia. Abdominal Nodes: No retroperitoneal adenopathy. The small perigastric node measuring 1.2 cm, (2/16), previously 1.3 cm in 2021. Vessels: Aorta and inferior vena cava are normal in size. PELVIS: Pelvic Organs: Prostatomegaly. Bladder: Not significantly distended. Stone in the dependent bladder measuring 2.1 cm, (277), 1229 Hounsfield units. Right posterior bladder diverticulum. Cluster of stones (approximately 5) with a larger stone measuring 2.3 cm. Overall this is similar to prior CT from 2019. Pelvic Nodes: Unremarkable. Miscellaneous: No inguinal hernias are seen. Bones: No suspicious osseous lesion. IMPRESSION: 1. Multiple stones in the urinary bladder. Right bladder diverticulum containing approximately 5 stones. 2. No kidney stones. No hydronephrosis. 3. Grossly similar pancreatic cysts and pancreatic ductal dilatation on this noncontrast CT. 4. Diverticulosis. Dictated by: Filiberto Jewell M.D. on 04/25/2023 at 9:47 Approved by: Filiberto Jewell M.D. on 04/25/2023 at 10:01
== END ==
PROVIDERS: Family Provider Internal Medicine; PCP Internal Medicine; Referring Provider Urology; Visit Provider Urology
DX: N32.3 Diverticulum of bladder (principal); N21.0 Calculus in bladder; K86.2 Cyst of pancreas; K86.89 Other specified diseases of pancreas
CPT/HCPCS: 74176

== ENCOUNTER → 2023-06-07 13:17 | Outpatient (CLI) | payer OTHER, SELFPAY ==
--- NOTE | 2023-06-07 13:18 | DI.RAD.S_ITS ---
PROCEDURE: FL CYSTOGRAM INDICATIONS: Bladder diverticulectomy ureteral reimplant COMPARISON: None. FINDINGS: KUB: Preprocedural foot setter film demonstrates a normal bowel gas pattern. A Morrissey catheter is present. No suspicious abdominal calcifications. Bony structures are unremarkable. Right-sided nephroureteral stent in place. Bladder: The filled bladder appears normal in contour. Early images demonstrate no bladder wall trabeculations. No vesicoureteral reflux or contrast extravasation. Postvoid: No significant postvoid residual. IMPRESSION: Right posterior bladder wall diverticulum. No evidence of perforation. Dictated by: Edil Rudolph M.D. on 06/07/2023 at 15:30 Approved by: Edil Rudolph M.D. on 06/07/2023 at 15:30
== END ==
PROVIDERS: Family Provider Internal Medicine; PCP Internal Medicine; Referring Provider Urology; Visit Provider Urology
DX: N32.3 Diverticulum of bladder (principal); Z98.890 Other specified postprocedural states
CPT/HCPCS: 74430

== ENCOUNTER → 2023-06-12 09:50 | Outpatient (CLI) | payer OTHER, SELFPAY ==
[2023-06-12 11:00] LABS: Appearance Urine UA TURBID; Bilirubin Urine UA NEGATIVE (NEGATIVE); Color Urine UA BROWN; Glucose Urine UA NEGATIVE (Negative); Ketones Urine UA 1+ (NEGATIVE); Leukocyte Esterase Urine UA 2+ (NEGATIVE); Nitrite Urine UA POSITIVE (Negative); Occult Blood Urine UA 3+ (Negative); Protein Urine UA 3+ (Negative); Specific Gravity Urine UA 1.025 (1.000-1.035); pH Urine UA 6.5 (4.5-8.0)
[2023-06-12 11:01] LABS: Bacteria Urine None Seen; RBC Urine >100/HPF (0-5/HPF); Squamous Epithelial Cell Urine None Seen (0-5/HPF); WBC Urine 10-30/HPF (0-5/HPF)
[2023-06-12 11:02] LABS: Culture Indicated Urine Specimen Cultured
== END ==
PROVIDERS: Family Provider Internal Medicine; PCP Internal Medicine; Referring Provider Urology; Visit Provider Urology
DX: N40.1 Benign prostatic hyperplasia with lower urinary tract symptoms (principal); N13.8 Other obstructive and reflux uropathy; N21.0 Calculus in bladder; Z98.890 Other specified postprocedural states; Z87.898 Personal history of other specified conditions; Z90.79 Acquired absence of other genital organ(s)
CPT/HCPCS: 81001; 87086

== ENCOUNTER → 2023-06-14 19:17 | Outpatient (CLI) | payer OTHER, SELFPAY ==
[2023-06-14 19:56] LABS: Appearance Urine UA TURBID; Color Urine UA RED; Glucose Urine UA TRACE g/dL (Negative); Ketones Urine UA TRACE (NEGATIVE); Leukocyte Esterase Urine UA 1+ (NEGATIVE); Nitrite Urine UA POSITIVE (Negative); Occult Blood Urine UA 3+ (Negative); Protein Urine UA 3+ (Negative); Specific Gravity Urine UA 1.025 (1.000-1.035); pH Urine UA 6.5 (4.5-8.0)
[2023-06-14 19:57] LABS: Bacteria Urine Many (>30); Bilirubin Urine UA 1+ (NEGATIVE); Culture Indicated Urine Specimen Cultured; RBC Urine >100/HPF (0-5/HPF); Squamous Epithelial Cell Urine 1-5 /HPF (0-5/HPF); WBC Urine 1-5/HPF (0-5/HPF)
== END ==
PROVIDERS: Family Provider Internal Medicine; PCP Internal Medicine; Visit Provider Urology
DX: N40.1 Benign prostatic hyperplasia with lower urinary tract symptoms (principal); N13.8 Other obstructive and reflux uropathy; Z96.0 Presence of urogenital implants; Z87.898 Personal history of other specified conditions
CPT/HCPCS: 52310; 81001; 87086

== ENCOUNTER → 2023-06-27 11:04 | Outpatient (CLI) | payer OTHER, SELFPAY ==
--- NOTE | 2023-06-27 11:06 | DI.RAD.S_ITS ---
PROCEDURE: XR LUMBAR SPINE MIN 4V INDICATIONS: low back pain TECHNIQUE: 5 views of the lumbar spine acquired, including flexion and extension views. COMPARISON: [facility], [place], XR LUMBAR SPINE 2-3V, 12/02/2020, 12:36. [facility], [place], L-SPINE 2-3 VIEWS, 06/16/2015, 12:13. FINDINGS: Bones: 5 nonrib-bearing vertebrae are present. Grade 1 anterolisthesis of L3 on L4 and L4 on L5, stable with flexion and extension. Mild disc height loss at all levels. Diffuse facet arthrosis. Soft tissues: Overlying bowel gas pattern is normal. No suspicious soft tissue calcifications. Flexion/extension: There is normal range of motion, with preserved normal alignment. IMPRESSION: Grade 1 anterolisthesis of L3 on L4 and L4 on L5, stable with flexion and extension. Mild, multilevel degenerative disc disease and diffuse facet arthrosis. Dictated by: Edil Rudolph M.D. on 06/27/2023 at 13:11 Approved by: Edil Rudolph M.D. on 06/27/2023 at 13:12
[2023-06-27 13:43] LABS: Alanine Aminotransferase 15 IU/L (<50); Albumin 4.3 g/dL (3.5-5.0); Albumin Globulin Ratio 1.2 (1.0-2.8); Alkaline Phosphatase 83 U/L (38-126); Aspartate Aminotransferase 41 IU/L (17-59); BUN Creatinine Ratio 18.8 (6-22); Blood Urea Nitrogen 16 mg/dL (9-20); Carbon Dioxide 25 mmol/L (22-32); Chloride 106 mmol/L (98-107); Cholesterol 147 mg/dL (140-199); Estimated Glomerular Filt Rate > 60 mL/min (>60); Globulin 3.5 g/dL (1.7-4.1); Glucose 110 mg/dL (80-110); HDL Cholesterol 46 mg/dL (40-60); HEMOLYSIS < 15 (0-50); LDL Cholesterol Calculated 76 mg/dL (<100); Potassium 3.9 mmol/L (3.4-5.1); Sodium 141 mmol/L (137-145); Total Protein 7.8 g/dL (6.3-8.2); Triglycerides 124 mg/dL (35-150)
[2023-06-27 14:06] LABS: Thyroid Stimulating Hormone 2.94 uIU/mL (0.47-4.68)
== END ==
PROVIDERS: Family Provider Internal Medicine; PCP Internal Medicine; Referring Provider Nurse Practitioner Acute Care; Visit Provider Nurse Practitioner Acute Care
DX: M51.36 Other intervertebral disc degeneration, lumbar region (principal); M43.16 Spondylolisthesis, lumbar region; M47.816 Spondylosis without myelopathy or radiculopathy, lumbar region; M54.50 Low back pain, unspecified; E78.5 Hyperlipidemia, unspecified; I47.10 Supraventricular tachycardia, unspecified; G89.29 Other chronic pain
CPT/HCPCS: 36415; 72110; 80053; 80061; 84439; 84443

== ENCOUNTER → 2023-08-02 13:51 | Outpatient (CLI) | payer OTHER, SELFPAY ==
--- NOTE | 2023-08-02 13:53 | DI.ECHO.S_ITS ---
[place] +---------+ [facility] +---------+ : : [address] : : : : [id number] : : : : Phone: [phone] Echocardiogram Report + + :Name: CLIFF BAER Study Date: 08/02/2023 Height: 78 in : :[facility] ReadingLocation: Weight: 208 lb : : Gender: Male BSA: 2.3 m2 : :: 1935 Age: 87 yrs BP: 121/79 mmHg: :Reason For Study: SICK SINUS SYNDROME : :Ordering Physician: LEE, : :MARIA LUZ Performed By: Shannon Herrera : :Referring: MARIA LUZ HOWARD : + + Interpretation Summary The ejection fraction is estimated to be 55-60%. Diastolic function could not be accurately assessed due to paced rhythm. The right ventricle is borderline dilated. The right ventricular systolic function is normal. There is moderate aortic stenosis. The ascending aorta is mildly enlarged, 3.8 cm. Compared to the prior study dated 11/17/2021, the aortic valve gradient has increased. Procedure: A two-dimensional transthoracic echocardiogram with color flow and Doppler was performed. The study quality was technically adequate. Comparison is made with the echocardiogram of 11/17/2021. The heart rate ranged between 69-95 bpm during the study. Left Ventricle: The left ventricle is normal in size and wall thickness. The ejection fraction is estimated to be 55-60%. Diastolic function could not be accurately assessed due to paced rhythm. Right Ventricle: The right ventricle is borderline dilated. There is a pacemaker lead in the right ventricle. The right ventricular systolic function is normal. Atria: The left atrial size is normal. Right atrial size is normal. There is a catheter/pacemaker lead seen in the right atrium. There is no Doppler evidence for an interatrial shunt. Mitral Valve: The mitral valve leaflets appear mildly thickened, but open well. There is trace mitral regurgitation. Aortic Valve: The aortic valve is moderately calcified. The aortic valve is trileaflet. There is moderate aortic stenosis. The peak aortic velocity is 3.0 m/sec. The aortic valve mean gradient is 23 mmHg. The calculated aortic valve area is 1.5 cm2. The dimensionless index is 0.36. There is trace aortic regurgitation. Tricuspid Valve: The tricuspid valve is normal in structure and function. There is trace tricuspid regurgitation. Pulmonary artery pressures cannot be estimated because of the lack of a measurable TR jet velocity but the IVC suggests a CVP of around 3 mmHg. Pulmonic Valve: The pulmonic valve leaflets are thin and pliable; valve motion is normal. There is mild pulmonic regurgitation. Great Vessels: The aortic root is normal size. The ascending aorta is mildly enlarged. The IVC is of normal diameter and collapses greater than 50% with a sniff. This suggests a low right atrial pressure of 3 mm Hg. Pericardium/ Pleura There is no pericardial effusion. There is no pleural effusion. MMode/2D Measurements & Calculations LVIDd: 4.3 cm LVOT diam: 2.2 cm LVIDs: 3.2 cm Ao root diam: 3.7 cm FS: 26.1 % asc Aorta Diam: 3.8 cm IVSd: 1.1 cm Ao Arch Diam (Prox Trans): 2.7 cm LVPWd: 1.0 cm LV varghese. diameter/BSA (cm/m^2): 1.9 LV sys. diameter/BSA (cm/m^2): 1.4 LA A2 area: 22.3 cm2 RA long axis: 5.5 cm LA A4 area: 19.1 cm2 RA area: 17.5 cm2 LA length (vol): 5.4 cm RA vol: 46.9 ml LA vol: 66.5 ml RA : 20.4 ml/m2 LA vol index: 29.0 ml/m2 IVC diam: 1.8 cm RVD1 (basal): 4.6 cm RVD2 (mid): 3.6 cm TAPSE: 2.0 cm Doppler Measurements & Calculations Ao V2 max: 288.8 cm/sec LVOT Max Abelino: 114.0 cm/sec Ao V2 mean: 220.8 cm/sec LV V1 max P.2 mmHg Ao max P.1 mmHg LV V1 VTI: 24.5 cm Ao mean P.9 mmHg ELIUD(I,D): 1.4 cm2 Ao V2 VTI: 64.6 cm ELIUD(V,D): 1.5 cm2 sev ratio: 0.38 ELIUD indexed to BSA (cm^2/m^2): 0.61 MV E max abelino: 52.7 cm/sec TR max abelino: 232.7 cm/sec MV A max abelino: 86.8 cm/sec TR max P.7 mmHg MV E/A: 0.61 PA V2 max: 125.2 cm/sec Med Peak E' Abelino: 4.6 cm/sec PA V2 mean: 87.6 cm/sec E/E' med: 11.5 PA mean P.4 mmHg Lat Peak E' Abelino: 5.0 cm/sec PA pr(Accel): 19.1 mmHg E/E' lat: 10.5 E/e' average: 11.0 MV dec time: 0.25 sec SV(LVOT): 90.1 ml Reading Physician:05:28 PM
== END ==
PROVIDERS: Family Provider Internal Medicine; PCP Internal Medicine; Referring Provider Nurse Practitioner Acute Care; Visit Provider Nurse Practitioner Acute Care
DX: I35.0 Nonrheumatic aortic (valve) stenosis (principal); I37.1 Nonrheumatic pulmonary valve insufficiency; I77.89 Other specified disorders of arteries and arterioles; I49.5 Sick sinus syndrome; I47.10 Supraventricular tachycardia, unspecified; Z86.2 Personal history of diseases of the blood and blood-forming organs and certain disorders involving the immune mechanism; Z95.0 Presence of cardiac pacemaker
CPT/HCPCS: 93306

== ENCOUNTER → 2024-02-16 13:52 | Outpatient (CLI) | payer MEDICARE, SELFPAY ==
--- NOTE | 2024-02-16 13:53 | DI.RAD.S_ITS ---
PROCEDURE: XR SHOULDER RT MIN 2V INDICATIONS: shoulder pain TECHNIQUE: << 3 views of the shoulder were acquired. COMPARISON: None. FINDINGS: Bones: There are no osseous abnormalities. Acromioclavicular and glenohumeral joints: Moderate acromioclavicular degeneration noted. Glenohumeral joint is normal. Soft tissues: No soft tissue swelling, calcification or mass. IMPRESSION: Moderate acromioclavicular degeneration. Dictated by: Nilson Higgins M.D. on 02/19/2024 at 6:33 Approved by: Nilson Higgins M.D. on 02/19/2024 at 6:34
== END ==
PROVIDERS: Family Provider Internal Medicine; PCP Internal Medicine; Referring Provider Student in an Organized Health Care Education/Training Program; Visit Provider Student in an Organized Health Care Education/Training Program
DX: M19.011 Primary osteoarthritis, right shoulder (principal); M25.511 Pain in right shoulder
CPT/HCPCS: 73030

== ENCOUNTER → 2024-04-18 10:27 | Outpatient (CLI) | payer MEDICARE, SELFPAY ==
--- NOTE | 2024-04-18 10:28 | DI.US.S_ITS ---
PROCEDURE: US PERIPH VENOUS LOW EXTREM LT INDICATIONS: Concern for LLE DVT TECHNIQUE: Real-time imaging, as well as color and pulse Doppler interrogation, were performed of the lower extremity deep veins from the inguinal ligament to the popliteal fossa, with documentation of the visualized calf veins. COMPARISON: None. FINDINGS: The common femoral, femoral, popliteal, and the visualized calf veins are normally compressible, and free of intraluminal thrombus. Color and pulse Doppler demonstrate normal phasic intraluminal flow. There is normal augmentation response to distal compression maneuver. IMPRESSION: Negative left lower extremity duplex venous ultrasound for DVT. Dictated by: Miguel De Souza M.D. on 04/18/2024 at 11:24 Approved by: Miguel De Souza M.D. on 04/18/2024 at 11:24
== END ==
PROVIDERS: Family Provider Internal Medicine; PCP Internal Medicine; Referring Provider Physician Assistant Surgical; Visit Provider Physician Assistant Surgical
DX: M79.89 Other specified soft tissue disorders (principal)
CPT/HCPCS: 93971

== ENCOUNTER 2024-04-25 12:00 | Emergency (ER) | payer MEDICARE, SELFPAY ==
[2024-04-25 12:04] VITALS: BP 122/80; PULSE 88; RESP 16; TEMP 36.4; O2SAT 96; BMI 24.3
--- NOTE | 2024-04-25 12:05 | DI.CT.S_ITS ---
PROCEDURE: CT ABDOMEN PELVIS W CON INDICATIONS: asymetric L leg edema, - dvt but getting worse TECHNIQUE: After the administration of intravenous contrast, axial sections acquired from the lung bases to the pubic symphysis. Coronal and sagittal reformats were performed. For radiation dose reduction, the following was used: automated exposure control, adjustment of mA and/or kV according to patient size. COMPARISON: [facility], CT, CT ABDOMEN PANCREATIC PROTOCOL, 01/07/2022, 12:23. [facility], CT, CT ABDOMEN PELVIS WO CON, 04/25/2023, 9:19. [facility], CT, CT ABDOMEN PELVIS W CON, 01/01/2020, 13:05. FINDINGS: Image quality: Diagnostic. Lower Chest: No significant findings. ABDOMEN: Liver: No solid mass. Steatosis. Gallbladder: Removed. Biliary ducts: No biliary dilation. Pancreas: Prominent ductal dilation most severe at the body/tail measuring 1.5 cm, compared to 1.2 cm. Multiple cystic foci appear to arise from/adjacent to the pancreatic duct. Overall appearance is slightly more prominent on current exam. Spleen: Size is within normal limits. Adrenal Glands: No adrenal nodules. Kidneys and Ureters: No hydronephrosis. No solid mass. No complex renal cystic lesion which requires follow up. Bilateral simple cysts/parapelvic cysts are present. Stomach and Bowel: Normal colonic caliber, without significant wall thickening. Significant colonic diverticula without inflammatory change. Peritoneum: No abnormal intraperitoneal fluid. No free air. Ventral Wall: No significant ventral hernia. Abdominal Nodes: No retroperitoneal or mesenteric adenopathy by size criteria. Vessels: Aorta and inferior vena cava are normal in size. PELVIS: Pelvic Organs: Prostate gland is enlarged. Bladder: No bladder wall thickening, accounting for underdistention. Bladder diverticulum is again noted. Pelvic Nodes: No enlarged lymph nodes. Miscellaneous: No inguinal hernias are seen. Bones: No aggressive osseous abnormality. IMPRESSION: Diverticulosis. Mildly increased appearance of pancreatic ductal dilation and cystic foci. While these could represent IPMN, as previously noted, GI consult is recommended if not obtained, as other etiologies cannot be excluded.. Dictated by: Muriel Cintron M.D. on 04/25/2024 at 14:38 Approved by: Muriel Cintron M.D. on 04/25/2024 at 14:42
[2024-04-25 12:40] LABS: Add Manual Diff / Slide Review NO; Basophils Absolute Auto 100 /uL (0-100); Basophils Percent Auto 0.9 % (0-2); Eosinophils Absolute Auto 100 /uL (0-450); Eosinophils Percent Auto 1.1 % (2-4); Hematocrit 42.8 % (41-53); Hemoglobin 14.5 g/dL (13.5-17.5); Lymphocytes Absolute Auto 1400 /uL (1100-4500); Lymphocytes Percent Auto 14.1 % (25-40); Mean Corpuscular HGB Conc 33.9 % (30-36); Mean Corpuscular Hemoglobin 36.9 PG (26-34); Mean Corpuscular Volume 108.9 fL (80-100); Monocytes Absolute Auto 1100 /uL (0-900); Monocytes Percent Auto 11.8 % (3-14); Neutrophils Absolute Auto 7000 /uL (1500-7000); Neutrophils Percent Auto 72.1 % (50-75); Platelet Count 203 X10^3/uL (150-400); Red Blood Cell Count 3.93 X10^6/uL (4.5-5.9); Red Cell Distribution Width 14.3 % (11.6-14.8); White Blood Cell Count 9.7 X10^3/uL (4.5-11.0)
[2024-04-25 12:51] LABS: Alanine Aminotransferase 16 IU/L (<50); Albumin 4.7 g/dL (3.5-5.0); Albumin Globulin Ratio 1.4 (1.0-2.8); Alkaline Phosphatase 100 U/L (38-126); Aspartate Aminotransferase 35 IU/L (17-59); BUN Creatinine Ratio 18.3 (6-22); Bilirubin Total 0.8 mg/dL (0.2-1.3); Blood Urea Nitrogen 15 mg/dL (9-20); Calcium 10.1 mg/dL (8.4-10.2); Carbon Dioxide 22 mmol/L (22-32); Chloride 106 mmol/L (98-107); Estimated Glomerular Filt Rate > 60 mL/min (>60); Globulin 3.3 g/dL (1.7-4.1); Glucose 100 mg/dL (80-110); HEMOLYSIS 38 (0-50); Sodium 139 mmol/L (137-145)
[2024-04-25 13:00] LABS: NT-proBNP (BNP-Adult 18+) 148 pg/mL (<450)
--- NOTE | 2024-04-25 13:58 | ED.EXTPRO ---
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 He notes that he has had a swollen left lower extremity for about a week. He was seen in the walk-in clinic on the had a negative DVT study was started on antibiotics with the possibility of infection. The entire leg still remains swollen, not particularly painful and Dr. Greene, his filling carrier, was concerned that there may be some other source of lymphatic or venous outflow obstruction and sent him to the ER for additional evaluation. He has not having chest pain, orthopnea, palpitations, nausea, vomiting or diarrhea Related Data Home Medications Medication Instructions Recorded Confirmed alpha lipoic acid 600 mg capsule 600 mg PO DAILY 12/10/21 04/18/24 ascorbic acid (vitamin C) 500 mg 500 mg PO DAILY 12/10/21 04/18/24 tablet cholecalciferol (vitamin D3) 25 25 mcg PO DAILY 12/10/21 04/18/24 mcg (1,000 unit) capsule coenzyme Q10 300 mg capsule (Co 300 mg PO DAILY 12/10/21 04/18/24 Q-10) cyanocobalamin (vitamin B-12) 1 tab sublingual DAILY 12/10/21 04/18/24 omega-3 fatty acids 1,000 mg 1,000 mg PO DAILY 12/10/21 04/18/24 capsule saw palmetto 160 mg capsule 320 mg PO DAILY 12/10/21 04/18/24 vitamin B complex 1 cap PO DAILY 12/10/21 04/18/24 atenolol 25 mg tablet 25 mg PO DAILY 02/16/24 04/18/24 Previous Rx's Medication Instructions Recorded Disabled Parking Permit 1 ea Not Applicable DAILY #1 ea 09/13/23 lidocaine 5 % topical ointment 1 applic topical QID PRN pain #30 02/16/24 grams cephalexin 500 mg capsule 500 mg PO Q6H 10 days #40 caps 04/18/24 finasteride 5 mg tablet 5 mg PO QDAY #90 tabs 04/24/24 rosuvastatin 10 mg tablet 10 mg PO DAILY #90 tabs 04/24/24 Allergies Allergy/AdvReac Type Severity Reaction Status Date / Time No Known Drug Allergies Allergy Verified 04/18/24 09:59 Review of Systems Review of Systems Narrative: Pertinent positive and negative findings as per HPI Patient History Medical History Sensorineural hearing loss Chronic low back pain History of gross hematuria Bladder diverticulum Nocturia Polyneuropathy, unspecified Bladder stones 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 Mixed hyperlipidemia Essential hypertension Sick sinus syndrome Cardiac sarcoidosis Surgical History S/P ureteral reimplantation History of transurethral resection of prostate S/P cardiac pacemaker procedure Social History Smoking Status: Never smoker alcohol intake: never Smoking Status: Never smoker alcohol intake frequency: holidays/special occasions only Substance Use Type: does not use Exam Initial Vital Signs Initial Vital Signs: Vital Signs Temperature 97.5 F L 04/25/24 12:04 Pulse Rate 88 04/25/24 12:04 Respiratory Rate 16 04/25/24 12:04 Blood Pressure 122/80 04/25/24 12:04 Pulse Oximetry 96 04/25/24 12:04 Oxygen Delivery Method Room Air 04/25/24 12:04 General: Healthy appearing, in no acute distress. Able to give a complete and coherent history. Well-nourished well-developed HEENT: Moist mucous membranes, normal sclera with reactive pupils, Neck: No JVD, supple Respiratory: Lungs are clear to auscultation, no wheezing no rales no rhonchi. Full and symmetrical air movement Cardiac: Regular rate and rhythm no murmurs no bruits Abdomen: Soft, nontender, good bowel tones, no flank pain Skin: Warm and dry, no rashes Neurologic: Grossly neurologically intact with no obvious asymmetries or abnormalities Extremities: No trauma, well perfused Psych: Cooperative, appropriate insight and affect Course Orders Ordered: ED Orders 04/25/24 12:05 CT abdomen pelvis w con Stat 04/25/24 12:32 Complete Blood Count AUTO DIFF Stat Comprehensive Metabolic Panel Stat NT-proBNP (BNP-Adult 18+) Stat Vital Signs Vital signs: Vital Signs - 8 hr 04/25/24 12:04 Temperature 97.5 F L Pulse Rate 88 Respiratory Rate 16 Blood Pressure 122/80 Pulse Oximetry 96 Oxygen Delivery Method Room Air MDM - Extremity (Nontraumatic) Lab Data 04/25/24 12:32 04/25/24 12:32 Labs: Lab Results 04/25/24 Range/Units 12:32 WBC 9.7 (4.5-11.0) X10^3/uL RBC 3.93 L (4.5-5.9) X10^6/uL Hgb 14.5 (13.5-17.5) g/dL Hct 42.8 (41-53) % MCV 108.9 H (80-100) fL MCH 36.9 H (26-34) PG MCHC 33.9 (30-36) % RDW 14.3 (11.6-14.8) % Plt Count 203 (150-400) X10^3/uL Neut % (Auto) 72.1 (50-75) % Lymph % (Auto) 14.1 L (25-40) % Pettis % (Auto) 11.8 (3-14) % Eos % (Auto) 1.1 L (2-4) % Baso % (Auto) 0.9 (0-2) % Neut # (Auto) 7000 (2054-0873) /uL Lymph # (Auto) 1400 (9611-2220) /uL Pettis # (Auto) 1100 H (0-900) /uL Eos # (Auto) 100 (0-450) /uL Baso # (Auto) 100 (0-100) /uL Sodium 139 (137-145) mmol/L Potassium 4.0 (3.4-5.1) mmol/L Chloride 106 (98-107) mmol/L Carbon Dioxide 22 (22-32) mmol/L BUN 15 (9-20) mg/dL Creatinine 0.82 (0.66-1.25) mg/dL Estimated GFR > 60 (>60) mL/min BUN/Creatinine Ratio 18.3 (6-22) Glucose 100 (80-110) mg/dL Calcium 10.1 (8.4-10.2) mg/dL Total Bilirubin 0.8 (0.2-1.3) mg/dL AST 35 (17-59) IU/L ALT 16 (<50) IU/L Alkaline Phosphatase 100 (38-126) U/L NT-Pro-B Natriuret Pep 148 (<450) pg/mL Total Protein 8.0 (6.3-8.2) g/dL Albumin 4.7 (3.5-5.0) g/dL Globulin 3.3 (1.7-4.1) g/dL Albumin/Globulin Ratio 1.4 (1.0-2.8) Imaging Data CT scan - abdomen/pelvis: Radiologist's Impression: PROCEDURE: CT ABDOMEN PELVIS W CON INDICATIONS: asymetric L leg edema, - dvt but getting worse TECHNIQUE: After the administration of intravenous contrast, axial sections acquired from the lung bases to the pubic symphysis. Coronal and sagittal reformats were performed. For radiation dose reduction, the following was used: automated exposure control, adjustment of mA and/or kV according to patient size. COMPARISON: [facility], CT, CT ABDOMEN PANCREATIC PROTOCOL, 01/07/2022, 12:23. [facility], CT, CT ABDOMEN PELVIS WO CON, 04/25/2023, 9:19. [facility], CT, CT ABDOMEN PELVIS W CON, 01/01/2020, 13:05. FINDINGS: Image quality: Diagnostic. Lower Chest: No significant findings. ABDOMEN: Liver: No solid mass. Steatosis. Gallbladder: Removed. Biliary ducts: No biliary dilation. Pancreas: Prominent ductal dilation most severe at the body/tail measuring 1.5 cm, compared to 1.2 cm. Multiple cystic foci appear to arise from/adjacent to the pancreatic duct. Overall appearance is slightly more prominent on current exam. Spleen: Size is within normal limits. Adrenal Glands: No adrenal nodules. Kidneys and Ureters: No hydronephrosis. No solid mass. No complex renal cystic lesion which requires follow up. Bilateral simple cysts/parapelvic cysts are present. Stomach and Bowel: Normal colonic caliber, without significant wall thickening. Significant colonic diverticula without inflammatory change. Peritoneum: No abnormal intraperitoneal fluid. No free air. Ventral Wall: No significant ventral hernia. Abdominal Nodes: No retroperitoneal or mesenteric adenopathy by size criteria. Vessels: Aorta and inferior vena cava are normal in size. PELVIS: Pelvic Organs: Prostate gland is enlarged. Bladder: No bladder wall thickening, accounting for underdistention. Bladder diverticulum is again noted. Pelvic Nodes: No enlarged lymph nodes. Miscellaneous: No inguinal hernias are seen. Bones: No aggressive osseous abnormality. IMPRESSION: Diverticulosis. Mildly increased appearance of pancreatic ductal dilation and cystic foci. While these could represent IPMN, as previously noted, GI consult is recommended if not obtained, as other etiologies cannot be excluded.. Dictated by: Muriel Cintron M.D. on 04/25/2024 at 14:38 MDM Narrative Medical decision making narrative: CC: painless left leg swelling Complicating co-morbidities: hypertension, hyperlipidemia, pacemaker, DVT study negative for same problem 1 week ago Data collected from: patient Medical records reviewed: walk-in clinic notes reviewed Differential considered: pelvic mass, pelvic blood clot, infection, DVT, congestive heart failure, renal failure Exam documented above, pertinent findings include: left leg is swollen to the thigh without pitting edema or pain. Lab Test results independently reviewed as above. Pertinent findings: CBC is unremarkable chemistries are reassuring proBNP is not elevated Imaging studies independently reviewed: CT scan does not show any pelvic pathology that would explain unilateral lower extremity edema Discussion: 88-year-old gentleman with left lower extremity edema slightly more than the right. This is not a DVT, no evidence of infection, no evidence of pelvic outflow obstruction and pancreatic abnormalities as noted previously. At this time there is no sign of significant heart failure, liver failure, do not expect DVT clinically no infection. As he has not having pain I am going to send him home. I do not have a full explanation but at this point there is also no indication for additional imaging or hospitalization. Discharge Plan Departure Patient Disposition: Home Clinical Impression: Edema of left lower extremity Instructions: DI for Peripheral Edema-Unilateral Activity Restrictions/Additional Instructions: Thank you for coming in today I do not have a full explanation for your symptoms Based on your clinical exam and the negative ultrasound a week ago, you still do not have a blood clot in your leg. There was no sign of infection. With the lab work that was done today there was no suggestion of kidney failure, heart failure, liver failure or significant electrolyte abnormalities. We did a CT scan of your abdomen and pelvis. This did not show any new abnormalities specifically, there was no mass, clot or abnormality in the left lower part of your pelvis that would be obstructing blood or lymphatic flow from your leg At this time, I believe it is safe for you to go home. I am glad that you are not having any pain. Keep your leg elevated as you are able, if you notice that symptoms are getting worse, feel free to return to either your primary care physician in the emergency department for further evaluation Prescriptions: No Action cephalexin 500 mg capsule 500 mg PO Q6H 10 Days Qty: 40 0RF atenolol 25 mg tablet 25 mg PO DAILY lidocaine 5 % ointment 1 applic topical QID PRN (Reason: pain) Qty: 30 1RF Disabled Parking Permit 1 ea Not Applicable DAILY Qty: 1 0RF finasteride 5 mg tablet 5 mg PO QDAY Qty: 90 2RF rosuvastatin 10 mg tablet 10 mg PO DAILY Qty: 90 2RF Co Q-10 300 mg capsule 300 mg PO DAILY omega-3 fatty acids 1,000 mg capsule 1,000 mg PO DAILY vitamin B complex Capsule 1 cap PO DAILY saw palmetto 160 mg capsule 320 mg PO DAILY Rx Instructions: give with food (meal/snack) ascorbic acid (vitamin C) 500 mg tablet 500 mg PO DAILY cholecalciferol (vitamin D3) 25 mcg (1,000 unit) capsule 25 mcg PO DAILY alpha lipoic acid 600 mg capsule 600 mg PO DAILY cyanocobalamin (vitamin B-12) 1 tab sublingual DAILY Rx Instructions: 1250 mg daily Referrals: Luis Camargo MD [Primary Care Provider] - Stand Alone Forms: Patient Portal/API/Survey
[2024-04-25 15:30] VITALS: BP 122/68; PULSE 68; RESP 20
== END 2024-04-25 16:00 | disposition home or self-care (01) ==
PROVIDERS: Emergency Provider Emergency Medicine; Family Provider Internal Medicine; PCP Internal Medicine
DX: R60.0 Localized edema (principal)
CPT/HCPCS: 36415; 74177; 80053; 83880; 85025; 99283; 99284; Q9967

== ENCOUNTER → 2024-04-30 15:57 | Outpatient (CLI) | payer SELFPAY ==
--- NOTE | 2024-04-30 15:59 | DI.RAD.S_ITS ---
PROCEDURE: XR FOOT LT MIN 3V INDICATIONS: Left ankle pain and swelling TECHNIQUE: 3 views of the foot were acquired. COMPARISON: None. FINDINGS: Bones: No fractures or dislocations. Osteoarthritic changes are noted throughout left foot. Well-defined plantar calcaneal enthesophyte is seen. No suspicious bony lesions. Soft tissues: No tibiotalar joint effusion. Achilles tendon appears normal. IMPRESSION: No acute left foot fracture or dislocation. Soft tissue swelling over dorsal aspect of left foot. [id number] left foot joint osteoarthritis. Well-defined plantar calcaneal enthesophyte. Dictated by: Francisco J Marks M.D. on 04/30/2024 at 21:56 Approved by: Francisco J Marks M.D. on 04/30/2024 at 22:01
--- NOTE | 2024-04-30 15:59 | DI.RAD.S_ITS ---
PROCEDURE: XR ANKLE LT MIN 3V INDICATIONS: Left foot pain and swelling TECHNIQUE: 3 views of the ankle were acquired. COMPARISON: None. FINDINGS: Bones: No fractures or dislocations. Ankle mortise is normally aligned. No suspicious bony lesions. Mild midfoot and hindfoot joint osteoarthritic changes with joint space narrowing and subchondral sclerosis. Well-defined plantar calcaneal enthesophyte is seen. Soft tissues: Mild soft tissue swelling around ankle joint is seen. No tibiotalar joint effusion. Achilles tendon appears normal. IMPRESSION: No acute ankle fracture or dislocation. Mild midfoot and hindfoot joint osteoarthritis. Plantar calcaneal enthesophyte. Diffuse ankle soft tissue swelling. Dictated by: Francisco J Marks M.D. on 04/30/2024 at 21:55 Approved by: Francisco J Marks M.D. on 04/30/2024 at 21:56
== END ==
PROVIDERS: Family Provider Internal Medicine; PCP Internal Medicine; Referring Provider Physician Assistant; Visit Provider Physician Assistant
DX: M19.072 Primary osteoarthritis, left ankle and foot (principal); M77.32 Calcaneal spur, left foot; M25.572 Pain in left ankle and joints of left foot; M25.472 Effusion, left ankle; R60.0 Localized edema; M79.89 Other specified soft tissue disorders
CPT/HCPCS: 73610; 73630

== ENCOUNTER → 2024-06-14 10:36 | Outpatient (CLI) | payer SELFPAY ==
[2024-06-14 11:34] LABS: Influenza A - CEPHEID Flu A NEGATIVE (NEGATIVE); Influenza B - CEPHEID Flu B NEGATIVE (NEGATIVE); Respiratory Syncytial Virus Negative (Negative)
[2024-06-14 12:01] LABS: COVID-19 CEPHEID 4-PLEX PCR Negative (Negative)
== END ==
PROVIDERS: Family Provider Internal Medicine; PCP Internal Medicine; Referring Provider Nurse Practitioner Family; Visit Provider Nurse Practitioner Family
DX: R05.1 Acute cough (principal)
CPT/HCPCS: 0241U

== ENCOUNTER → 2024-06-14 10:57 | Outpatient (CLI) | payer MEDICARE, SELFPAY ==
--- NOTE | 2024-06-14 11:02 | DI.RAD.S_ITS ---
PROCEDURE: XR CHEST 2V INDICATIONS: Dyspnea TECHNIQUE: 2 views of the chest were acquired. COMPARISON: None. FINDINGS: Heart, mediastinum and pulmonary vascular: The heart is borderline enlarged. Pacemaker leads in satisfactory position. Mediastinum and pulmonary vascular are normal. Lungs: Small patchy infiltrate is seen in the right lower lobe Pleural spaces: Normal-no effusions or pneumothorax. Bones and soft tissues: Normal IMPRESSION: Small right lower lobe pneumonia Dictated by: Nilson Higgins M.D. on 06/14/2024 at 13:41 Approved by: Nilson Higgins M.D. on 06/14/2024 at 13:43
== END ==
PROVIDERS: Family Provider Internal Medicine; PCP Internal Medicine; Referring Provider Nurse Practitioner Family; Visit Provider Nurse Practitioner Family
DX: R05.1 Acute cough (principal); J18.9 Pneumonia, unspecified organism
CPT/HCPCS: 0241U; 71046

== ENCOUNTER → 2024-07-30 12:38 | Outpatient (CLI) | payer MEDICARE, SELFPAY ==
--- NOTE | 2024-07-30 12:39 | DI.ECHO.S_ITS ---
[facility] : : [address] : : [place] : : [id number] : : Phone: [phone] Echocardiogram Report + + :Name: CLIFF BAER Study Date: 07/30/2024 Height: 78 in : :[facility] ReadingLocation: Weight: 205 lb : : Gender: Male BSA: 2.3 m2 : :: 1935 Age: 88 yrs BP: 121/80 mmHg: :Reason For Study: AORTIC STENOSIS : :Ordering Physician: PARISH, : :CASS Johnson Performed By: Shannon Herrera : :Referring: CASS GREENE : + + Interpretation Summary The ejection fraction is estimated to be 55-60%. Diastolic function could not be accurately assessed due to paced rhythm. The right ventricle is normal in size and function. There is mild mitral regurgitation. There is moderate aortic stenosis. There is mild aortic regurgitation. There is mild tricuspid regurgitation. The right ventricular systolic pressure is estimated to be at least 25 mmHg based on an estimated right atrial pressure of 3 mm Hg. Compared to the prior study 08/02/2023, the aortic valve area has decreased. Procedure: A two-dimensional transthoracic echocardiogram with color flow and Doppler was performed. The study quality was technically adequate. Comparison is made with the echocardiogram of 08/02/2023. The patient has a paced rhythm. The heart rate ranged between 69-70 bpm during the study. Left Ventricle: The left ventricle is normal in size and wall thickness. The ejection fraction is estimated to be 55-60%. Diastolic function could not be accurately assessed due to paced rhythm. Right Ventricle: There is a pacemaker lead in the right ventricle. The right ventricle is normal in size and function. Atria: The left atrial size is normal. Right atrial size is normal. There is no Doppler evidence for an interatrial shunt. Mitral Valve: The mitral valve leaflets are mildly calcified. There is mild mitral annular calcification. There is mild mitral regurgitation. Aortic Valve: The aortic valve is trileaflet. The aortic valve is moderately calcified. There is mildly reduced leaflet mobility. There is moderate aortic stenosis. The peak aortic velocity is 3.3 m/sec. The aortic valve mean gradient is 26 mmHg. The calculated aortic valve area is 1.2 cm2. There is mild aortic regurgitation. Tricuspid Valve: The tricuspid valve leaflets are thin and pliable. There is mild tricuspid regurgitation. The right ventricular systolic pressure is estimated to be at least 25 mmHg based on an estimated right atrial pressure of 3 mm Hg. Pulmonic Valve: The pulmonic valve leaflets are thin and pliable; valve motion is normal. There is mild pulmonic regurgitation. Great Vessels: The aortic root is normal size. The dimensions of the ascending aorta are normal. The IVC is of normal diameter and collapses greater than 50% with a sniff. This suggests a low right atrial pressure of 3 mm Hg. Pericardium/ Pleura There is no pericardial effusion. There is no pleural effusion. MMode/2D Measurements & Calculations LVIDd: 4.3 cm LVOT diam: 2.2 cm LVIDs: 3.2 cm Ao root diam: 3.9 cm FS: 27.3 % asc Aorta Diam: 3.6 cm IVSd: 0.92 cm Ao Arch Diam (Prox Trans): 2.9 cm LVPWd: 1.0 cm LV varghese. diameter/BSA (cm/m^2): 1.9 LV sys. diameter/BSA (cm/m^2): 1.4 LA A2 area: 23.4 cm2 RA long axis: 5.6 cm LA A4 area: 19.8 cm2 RA area: 18.2 cm2 LA length (vol): 5.3 cm RA vol: 50.0 ml LA vol: 73.9 ml RA : 21.9 ml/m2 LA vol index: 32.4 ml/m2 IVC diam: 1.4 cm RVD1 (basal): 3.8 cm TAPSE: 1.9 cm Doppler Measurements & Calculations Ao V2 max: 306.8 cm/sec LVOT Max Abelino: 103.7 cm/sec Ao V2 mean: 243.2 cm/sec LV V1 max P.3 mmHg Ao max P.6 mmHg LV V1 VTI: 21.1 cm Ao mean P.6 mmHg ELIUD(I,D): 1.3 cm2 Ao V2 VTI: 63.2 cm ELIUD(V,D): 1.3 cm2 sev ratio: 0.33 ELIUD indexed to BSA (cm^2/m^2): 0.57 MV E max abelino: 52.7 cm/sec TR max abelino: 232.0 cm/sec MV A max abelino: 97.0 cm/sec TR max P.5 mmHg MV E/A: 0.54 PA V2 max: 98.7 cm/sec Med Peak E' Abelino: 3.6 cm/sec PA V2 mean: 67.9 cm/sec E/E' med: 14.6 PA mean P.1 mmHg MV dec time: 0.22 sec PA pr(Accel): 18.6 mmHg SV(LVOT): 81.6 ml Reading Physician:05:17 PM
== END ==
PROVIDERS: Family Provider Internal Medicine; PCP Internal Medicine; Referring Provider Internal Medicine Cardiovascular Disease; Visit Provider Internal Medicine Cardiovascular Disease
DX: I08.3 Combined rheumatic disorders of mitral, aortic and tricuspid valves (principal)
CPT/HCPCS: 93306

== ENCOUNTER → 2024-10-14 10:42 | Outpatient (CLI) | payer MEDICARE, SELFPAY ==
[2024-10-14 11:28] LABS: Influenza A - CEPHEID Flu A NEGATIVE (NEGATIVE); Influenza B - CEPHEID Flu B NEGATIVE (NEGATIVE); Respiratory Syncytial Virus Negative (Negative)
[2024-10-14 11:40] LABS: COVID-19 CEPHEID 4-PLEX PCR POSITIVE (Negative)
== END ==
PROVIDERS: Family Provider Internal Medicine; PCP Internal Medicine; Referring Provider Nurse Practitioner Family; Visit Provider Nurse Practitioner Family
DX: R05.1 Acute cough (principal)
CPT/HCPCS: 0241U

== ENCOUNTER → 2024-11-19 12:13 | Outpatient (CLI) | payer MEDICARE, SELFPAY ==
[2024-11-19 13:48] LABS: Aspartate Aminotransferase 27 IU/L (17-59); Blood Urea Nitrogen 15 mg/dL (9-20); Calcium 10.2 mg/dL (8.4-10.2); Carbon Dioxide 26 mmol/L (22-32); Chloride 103 mmol/L (98-107); Cholesterol 132 mg/dL (140-199); Estimated Glomerular Filt Rate > 60 mL/min (>60); Glucose 98 mg/dL (70-99); HDL Cholesterol 46 mg/dL (40-60); HEMOLYSIS < 15 (0-50); LDL Cholesterol Calculated 44 mg/dL (<100); Potassium 4.2 mmol/L (3.4-5.1); Sodium 138 mmol/L (137-145); Triglycerides 211 mg/dL (35-150)
== END ==
PROVIDERS: PCP Internal Medicine; Referring Provider Internal Medicine; Visit Provider Internal Medicine
DX: E78.2 Mixed hyperlipidemia (principal); D49.0 Neoplasm of unspecified behavior of digestive system; N40.1 Benign prostatic hyperplasia with lower urinary tract symptoms; N13.8 Other obstructive and reflux uropathy
CPT/HCPCS: 36415; 80048; 80061; 84450

== ENCOUNTER → 2024-12-18 11:12 | Outpatient (CLI) | payer MEDICARE, SELFPAY ==
--- NOTE | 2024-12-18 11:13 | DI.CT.S_ITS ---
PROCEDURE: CT ABDOMEN PANCREATIC PROTOCOL INDICATIONS: pancreatic protocol TECHNIQUE: Both before and after the administration of intravenous contrast, 3 mm thick pancreatic-phase images acquired from the diaphragm to the iliac crests. 3 mm thick coronal and sagittal reformats were performed. For radiation dose reduction, the following was used: automated exposure control, adjustment of mA and/or kV according to patient size. COMPARISON: [facility], CT, CT ABDOMEN PANCREATIC PROTOCOL, 01/07/2022, 12:23. FINDINGS: Image quality: Diagnostic. Lower chest: Cardiomegaly with pacemaker. Fibrotic changes in the lower lungs. ABDOMEN: Pancreas: Mildly atrophic pancreas diffusely. Prominent pancreatic duct dilatation with several adjacent side-branch dilatations throughout the gland. One of the largest cystic components is seen in the tail and measures about 3.3 cm in diameter. The duct measures approximately 8 mm. No ductal calcifications. Mild mural and septal enhancement of cystic structures in the distal tail, similar compared to prior exams. No new solid nodule. Liver: No solid mass. Gallbladder: Surgically absent. Biliary ducts: Appropriate biliary tree caliber post cholecystectomy. Adrenal Glands: No nodules. Spleen: Size is within normal limits. Kidneys and Ureters: Several left renal parapelvic cysts. No new mass or cyst. Symmetric enhancement. No hydronephrosis. Stomach and Bowel: Stomach and visible bowel loops are within normal limits. Peritoneum: No abnormal intraperitoneal fluid. No free air. Ventral Wall: No hernia. Abdominal Nodes: Prominent periceliac lymph node is stable. No new epigastric adenopathy. Vessels: The abdominal aorta, IVC, and portal vein are of normal caliber. Bones: No aggressive osseous abnormality. IMPRESSION: Stable appearance of the pancreas including dilated duct and several. Ductal cystic masses. The appearance is most suggestive of IPMN. No new suspicious features, although there is stable, mild mural enhancement of the distal most cysts. Continued attention on follow-up. Other incidental findings as above are stable. Dictated by: Bonnie Kwon M.D. on 12/18/2024 at 17:38 Approved by: Bonnie Kwon M.D. on 12/18/2024 at 17:52
== END ==
PROVIDERS: PCP Internal Medicine; Referring Provider Internal Medicine; Visit Provider Internal Medicine
DX: D49.0 Neoplasm of unspecified behavior of digestive system (principal); N40.1 Benign prostatic hyperplasia with lower urinary tract symptoms; N13.8 Other obstructive and reflux uropathy; N28.1 Cyst of kidney, acquired; E78.2 Mixed hyperlipidemia; K86.89 Other specified diseases of pancreas; Z90.49 Acquired absence of other specified parts of digestive tract
CPT/HCPCS: 74170; Q9967

== ENCOUNTER → 2025-02-13 09:20 | Outpatient (CLI) | payer MEDICARE, SELFPAY ==
[2025-02-13 09:50] LABS: Hematocrit 42.3 % (41-53); Hemoglobin 14.8 g/dL (13.5-17.5); Mean Corpuscular HGB Conc 35.0 % (30-36); Mean Corpuscular Hemoglobin 37.5 PG (26-34); Mean Corpuscular Volume 107.2 fL (80-100); Platelet Count 189 X10^3/uL (150-400)
[2025-02-13 10:30] LABS: Hemoglobin A1C% w Est Avg Glu 5.7 % (4.0-6.0)
[2025-02-13 10:36] LABS: Free T4, Direct Thyroxine 0.92 ng/dL (0.78-2.19)
[2025-02-13 10:50] LABS: Thyroid Stimulating Hormone 1.87 uIU/mL (0.47-4.68)
== END ==
PROVIDERS: PCP Internal Medicine; Referring Provider Internal Medicine Cardiovascular Disease; Visit Provider Internal Medicine Cardiovascular Disease
DX: E78.5 Hyperlipidemia, unspecified (principal); I47.10 Supraventricular tachycardia, unspecified
CPT/HCPCS: 36415; 83036; 84439; 84443; 85027

== ENCOUNTER → 2025-05-12 09:42 | Outpatient (CLI) | payer MEDICARE, SELFPAY | LOC: CAR 09:43 | PROVIDERS: PCP Internal Medicine; Referring Provider Internal Medicine; Visit Provider Internal Medicine | DX: I48.91 Unspecified atrial fibrillation (principal); I48.92 Unspecified atrial flutter | CPT/HCPCS: 93242 ==